=== PATIENT | male | born 1960 | race Caucasian/White ===

== ENCOUNTER 2017-07-31 13:45 | Emergency (ER) | payer OTHER ==
[~2017-07-31 13:45] MED LIST: CIAL5TAB PO
[2017-07-31 13:47] VITALS: BP 134/91; PULSE 81; RESP 14; TEMP 97.6; O2SAT 97
[2017-07-31 14:48] LABS: BASOPHIL # 0.1 TH/MM3 (0-0.2); BASOPHIL % 0.5 % (0.0-2.0); EOSINOPHIL # 0.3 TH/MM3 (0-0.4); EOSINOPHIL % 2.8 % (0.0-4.0); HEMATOCRIT 46.3 % (39.0-51.0); HEMOGLOBIN 16.6 GM/DL (13.0-17.0); LYMPH % 11.7 % (9.0-44.0); LYMPHOCYTE # 1.3 TH/MM3 (1.0-4.8); MEAN CELL VOLUME 93.1 FL (80.0-100.0); MEAN CORPUSCULAR HEMOGLOBIN 33.4 PG (27.0-34.0); MEAN CORPUSCULAR HGB CONC 35.8 % (32.0-36.0); MEAN PLATELET VOLUME 8.7 FL (7.0-11.0); MONO % 11.3 % (0.0-8.0); MONOCYTE # 1.2 TH/MM3 (0-0.9); NEUT % 73.7 % (16.0-70.0); PLATELET COUNT 191 TH/MM3 (150-450); RED BLOOD COUNT 4.97 MIL/MM3 (4.50-5.90); RED CELL DISTRIBUTION WIDTH 13.2 % (11.6-17.2); WHITE BLOOD COUNT 10.8 TH/MM3 (4.0-11.0)
--- NOTE | 2017-07-31 15:24 | PD ---
HPI Chief Complaint: Musculoskeletal Complaint Time Seen by Provider: 14:15 Travel History International Travel<30 days: No Contact w/Intl Traveler<30days: No Traveled to known affect area: No History of Present Illness HPI 57-year-old male that presents to the ED for evaluation of left knee pain. Per patient he hit on the table about a week ago and his been doing okay he didn't think much of it at the time but every day seems like it is getting more swelling and progressively more painful. The patient most of the swelling is on the anterior aspect of the knee. He is able to flex and extend it but has difficulty with weightbearing secondary to that the swelling and the pain. Patient went to an urgent care today and they did an x-ray and sent him here for evaluation of possible septic joint because patient had warmness to the leg. Patient has been applying ice to the leg with some relief. Per patient the pain is 7 out of 10 with weightbearing. Otherwise minimal discomfort. Denies any fevers chills or sweats. He does have a history of gout. No previous injuries to the knee. No surgeries to the knee. Per patient he is never had any injections to the knee or denies any IV drug abuse or HIV or immunosuppression. Patient himself denies any redness to the leg. He states that he was told to come here to get evaluated for this. He states that he's had gout in his knee on the right side once before but never on the left knee. He states that he feels a little different but he is not sure. No other injuries reported. Per patient the x-ray was done but they were not told that he had a fracture or not. PFSH Past Medical History Diminished Hearing: No Gout: Yes Musculoskeletal: Yes (MULTIPLE BILAT LEG FRACTURES) Tetanus Vaccination: < 5 Years Influenza Vaccination: No Past Surgical History Other Surgery: Yes (L ANKLE REPAIR ) Social History Alcohol Use: Yes (1-2 BEER NIGHT) Tobacco Use: Yes (COUPLE CIGARS DAILY ) Substance Use: Yes (CANNABIS) Allergies-Medications (Allergen,Severity, Reaction): Coded Allergies: thiopental (Verified Allergy, Severe, 07/31/17) Reported Meds & Prescriptions Reported Meds & Active Scripts Active Prednisone 20 Mg Tab 20 Mg PO BID [address] (Diclofenac Sodium) 75 Mg Tabdr 75 Mg PO BID PRN Review of Systems Except as stated in HPI: all other systems reviewed are Neg Physical Exam Narrative GENERAL: SKIN: Warm and dry. HEAD: Atraumatic. Normocephalic. EYES: Pupils equal and round. No scleral icterus. No injection or drainage. ENT: No nasal bleeding or discharge. Mucous membranes pink and moist. NECK: Trachea midline. No JVD. CARDIOVASCULAR: Regular rate and rhythm. RESPIRATORY: No accessory muscle use. Clear to auscultation. Breath sounds equal bilaterally. GASTROINTESTINAL: Abdomen soft, non-tender, nondistended. Hepatic and splenic margins not palpable. MUSCULOSKELETAL: Extremities without clubbing, cyanosis, or edema. No obvious deformities. Full range of motion of the upper and lower extremities bilaterally. Patient able to flex the knee but with some discomfort. Patient does have some soft tissue swelling to the anterior aspect of the knee which appears to be some just above the patella. Warm to the touch but not erythematous. Valgus and varus test negative. Pronator test negative. 2+ pulses bilaterally. No obvious erythema noted. NEUROLOGICAL: Awake and alert. No obvious cranial nerve deficits. Motor grossly within normal limits. Five out of 5 muscle strength in the arms and legs. Normal speech. PSYCHIATRIC: Appropriate mood and affect; insight and judgment normal. Data Data Last Documented VS Vital Signs Date Time Temp Pulse Resp B/P (MAP) Pulse Ox O2 Delivery O2 Flow Rate FiO2 07/31/17 13:47 97.6 81 14 134/91 (105) 97 Orders Orders Knee, Complete (4vws) (07/31/17 ) Complete Blood Count With Diff (07/31/17 14:29) C-Reactive Protein (Crp) (07/31/17 14:29) Splint Or Brace Apply/Monitor (07/31/17 16:16) Ketorolac Inj (Toradol Inj) (07/31/17 16:30) Ed Discharge Order (07/31/17 16:25) Labs Laboratory Tests Test 07/31/17 14:30 White Blood Count 10.8 TH/MM3 Red Blood Count 4.97 MIL/MM3 Hemoglobin 16.6 GM/DL Hematocrit 46.3 % Mean Corpuscular Volume 93.1 FL Mean Corpuscular Hemoglobin 33.4 PG Mean Corpuscular Hemoglobin Concent 35.8 % Red Cell Distribution Width 13.2 % Platelet Count 191 TH/MM3 Mean Platelet Volume 8.7 FL Neutrophils (%) (Auto) 73.7 % Lymphocytes (%) (Auto) 11.7 % Monocytes (%) (Auto) 11.3 % Eosinophils (%) (Auto) 2.8 % Basophils (%) (Auto) 0.5 % Neutrophils # (Auto) 8.0 TH/MM3 Lymphocytes # (Auto) 1.3 TH/MM3 Monocytes # (Auto) 1.2 TH/MM3 Eosinophils # (Auto) 0.3 TH/MM3 Basophils # (Auto) 0.1 TH/MM3 CBC Comment AUTO DIFF Differential Comment AUTO DIFF CONFIRMED C-Reactive Protein 1.60 MG/DL MDM Medical Decision Making Medical Screen Exam Complete: Yes Emergency Medical Condition: Yes Medical Record Reviewed: Yes Interpretation(s) CBC & BMP Diagram 07/31/17 14:30 CRP elevated Last Impressions Knee X-Ray 07/31/17 0000 Signed Impressions: Service Date/Time: Wednesday, July 31, 2017 15:07 - CONCLUSION: 1. Negative examination of the knee. Ruben Barajas MD Differential Diagnosis Bursitis versus fracture versus septic joint versus gout Narrative Course 57-year-old male that presents to the ED for evaluation of left knee pain. Patient was properly examined and was found to have signs and symptoms which appear to be consistent with swelling of the knee. Unclear etiology at this time. Patient has no risk factors for septic joint with no open sores to the knee and no signs of cellulitis to the knee itself. He does appear to be swollen likely from possible bursitis. Unfortunately were unable to get x-rays to review on the computer so no x-rays were ordered. My attending was made aware of findings and will evaluate the patient. Lab was ordered as well. Patient agrees to proceed. Labs and imaging were sent here unremarkable. CRP slightly elevated likely secondary to inflammation. Case was discussed in my attending Dr. Mcgee was made aware of findings. She reviewed the x-ray herself recommends against aspiration to rule out septic arthritis. Again this appears to be less likely. I do believe patient has traumatic bursitis. She recommends trial of anti-inflammatories and knee brace with crutches. Patient was told this and agrees with plan. Dr. Mcgee recommends patient be discharged. Patient agrees with plan. Follow with PCP. See ED worsening symptoms. Patient was given dose of Toradol here. Patient was given prescriptions for diclofenac sodium and prednisone. Given splint. Patient was given the name of orthopedic surgeon on-call to follow-up this week. Diagnosis Primary Impression: Knee bursitis Qualified Codes: M70.42 - Prepatellar bursitis, left knee Referrals: Jesus Hussein MD Patient Instructions: General Instructions Additional Instructions: Take medications as prescribed. Follow-up with PCP. See ED for any worsening symptoms. Do not drink or drive while taking pain medication. Apply ice as needed for pain Med/Other Pt SpecificInfo: Prescription(s) given Scripts Prednisone (Prednisone) 20 Mg Tab 20 MG PO BID for 5 Days, #10 TAB 0 Refills Prov: Rocio Mcgee MD 07/31/[address] (Diclofenac Sodium DR) 75 Mg Tabdr 75 MG PO BID Y for PAIN SCALE 1 TO 10, #20 TAB 0 Refills Prov: Rocio Mcgee MD 07/31/17 Disposition: 01 DISCHARGE HOME Condition: Stable Saul De La Fuente Jul 31, 2017 15:24
--- NOTE | 2017-07-31 16:06 | RADRPT ---
EXAM DATE/TIME: 07/31/2017 15:07 [facility] COMPARISON: No previous studies available for comparison. INDICATIONS : Patient hit left knee on table 6 days ago. Complains of pain and swelling near patella. MEDICAL HISTORY : None. SURGICAL HISTORY : None. ENCOUNTER: Initial ACUITY: 4 - 6 days PAIN SCORE: 7/10 LOCATION: Left Knee FINDINGS: Four view examination of the left knee demonstrates no evidence of fracture or dislocation. Bony min eralization is normal. The articular surfaces are intact. The suprapatellar soft tissues have a nor mal configuration. CONCLUSION: 1. Negative examination of the knee. Ruben Barajas MD on July 31, 2017 at 16:04 Board Certified Radiologist. This report was verified electronically.
[2017-07-31] MEDS ORDERED: PRED20 PO (16:26)
[2017-07-31] MEDS ORDERED: DICL75TA PO (16:26)
[2017-07-31] MEDS ORDERED: KETOROLAC TROMETHAMINE 30 MG/ML (IVP) VIAL IV PUSH ONE (16:30)
== END 2017-07-31 17:55 | disposition home or self-care (01) ==
LOC: NEPC 13:45
DX: M70.42 Prepatellar bursitis, left knee (principal); M10.9 Gout, unspecified; F17.290 Nicotine dependence, other tobacco product, uncomplicated; Z79.899 Other long term (current) drug therapy
CPT/HCPCS: 73564; 85025; 86140; 96374; 99284; E0113; J1885; L1830